=== PATIENT | female | born 1975 | race Caucasian/White ===

== ENCOUNTER 2018-09-18 09:21 | Emergency (ER) | payer OTHER, SELFPAY ==
[2018-09-18 09:21] VITALS: BP 149/79; PULSE 80; RESP 18; TEMP 37.1; O2SAT 96; BMI 33.0
--- NOTE | 2018-09-18 10:01 | ED.DCSUM_ITS ---
History of Present Illness <Arnulfo Summers - Last Filed: 09/18/18 10:14> Informant: Patient Onset: Days Context: Gradual Onset Timing: Waxes and wanes, - - Aggravated by ambulation Quality: ache Location: Plantar Surface left foot Current Severity: Mild Maximum Severity: Moderate Worsened by: Ambulation Prior similar symptoms: No Recent Illness/Hospitalization: No <Kelsi Stuart - Last Filed: 12/05/18 15:57> Chief Complaint: Lower Extremity Injury Past Medical History <Arnulfo Summers - Last Filed: 09/18/18 10:14> Prior records reviewed: Yes Lives: With Family Smoking Status: Former smoker Alcohol: None Drugs: None <Kelsi Stuart - Last Filed: 12/05/18 15:57> - Allergies and Home Meds Allergies/Adverse Reactions: Allergies No Known Allergies Allergy (Verified 09/18/18 09:23) Primary Care Physician: Mike Morgan MD [Primary Care Provider] - Hiren Pierre DPM [STAFF PHYSICIAN] - Review of Systems All systems negative except as indicated General: Denies: Chills, Fever, Sweats Eyes: Denies: Visual changes - bilaterally, Diplopia ENT: Denies: Rhinorrhea, Sore throat Cardiovascular: Denies: Chest pain, Palpitations Respiratory: Denies: Dyspnea, Cough, Dyspnea on exertion Gastrointestinal: Denies: Abdominal pain, Nausea, Vomiting, Diarrhea, Melena, Hematochezia Genitourinary: Denies: Dysuria, Hematuria, Frequency Musculoskeletal: Reports: Extremity Pain - atraumatic left foot pain. Denies: Back pain Skin: Denies: Rash, Wounds Neurological: Denies: Headache, Weakness, Numbness <Kelsi Stuart - Last Filed: 12/05/18 15:57> Physical Exam Vital Signs/Narrative: Vital Signs Temp Pulse Resp BP Pulse Ox 09/18/18 09:21 98.8 F 80 18 149/79 H 96 <Anrulfo Summers - Last Filed: 09/18/18 10:14> Vital Signs/Narrative: Vital Signs Temp Pulse Resp BP Pulse Ox 09/18/18 09:21 98.8 F 80 18 149/79 H 96 Inital Vital Signs reviewed: Yes General: Well nourished, Well developed, No Acute Distress Head: Normocephalic, Atraumatic Eyes: Perrl, EOMI ENT: Moist mucous membranes, No rhinorrhea Neck: Supple, Nontender Cardiovascular: Regular rate, Regular rhythm, No murmurs Respiratory: No distress, CTA bilaterally, Chest nontender Abdomen: Soft, Nontender, Nondistended, Normal bowel sounds Back: Nontender, Normal Inspection Extremities: No edema, Tenderness, - - Exam the left foot is unremarkable for trauma. There is no swelling deformity or warmth. MSP is are intact. She has pain with palpation of the plantar surface and flexion of the foot. She described worsening pain when she first stepped down this morning onto the floor.. Negative for: Edema, Calf Tenderness Skin: Normal color, No rash Neurological: Alert, Oriented x3, Cranial nerves II-XII grossly intact, Normal Strength, Normal Sensation Psychological: Normal affect, Normal Mood <Kelsi Stuart - Last Filed: 12/05/18 15:57> Diagnostic/Tx/Re-eval - Medical Decision Making The patient was seen with the nurse practitioner I agree with history physical e xam as above, there is been no injury is a nonspecific discomfort to the foot area no signs of trauma infection or anything acute or life-threatening, at this time screening studies are obtained see this report will determine disposition see the full note for details <Arnulfo Summers - Last Filed: 09/18/18 10:14> - Medical Decision Making Sakshi presents with left plantar foot pain for several days. She denies known injury. Pain was worse when she first step down this morning concerning her to come to the ED. She denied fever chills or leg pain or swelling. She has no history of significant arthritis or clotting disorder. Differential includes foot sprain, plantar fasciitis,occult fracture. X-ray of her left foot showed no acute bony injury process. She will be placed in a postop shoe and prescribed Naprosyn for inflammation. Her exam seems to be most consistent with plantar fasciitis. She will follow the primary care provider and/or podiatry. She was discharged home in stable condition and is agreeable to discharge plan. Final impression: Left foot pain Plantar fasciitis <Kelsi Stuart - Last Filed: 12/05/18 15:57> ED Disposition <Arnulfo Summers - Last Filed: 09/18/18 10:14> <PhillipKelsi storey - Last Filed: 12/05/18 15:57> - Plan for ED Patient: Disposition: Home or Assisted Living Diagnosis: Plantar fascia syndrome Instructions: Sprain Foot Prescriptions: Naproxen [Naprosyn] 500 mg PO BID PRN #20 tab Prescription Printed Referrals: Mike Morgan MD [Primary Care Provider] - Hiren Pierre DPM [STAFF PHYSICIAN] -
--- NOTE | 2018-09-18 10:20 | RAD_ITS ---
STUDY: X-RAY - LEFT FOOT CLINICAL: Female, 43 years old. TECHNIQUE: 3 view(s) of the foot. COMPARISON: None. FINDINGS: Normal talus, calcaneus, and tarsal bones. Normal visualized subtalar, talonavicular, calcaneocuboid, tarsal and tarsometatarsal articulations. Normal metatarsi. Normal metatarsophalangeal joint of the great toe. Normal tibial and fibular sesamoid bones. Normal interphalangeal joint of the great toe. Normal phalanges of the great toe. Normal second through fifth metatarsophalangeal joints. Normal interphalangeal joints and phalanges of the lesser toes. The soft tissue structures are unremarkable. RAD/Foot min 3 Views IMPRESSION: Normal x-ray examination of the foot. Electronically Signed: Keanulaureen Margot, at 11:40 EDT Tel , Service support ,
[2018-09-18 14:06] VITALS: BP 135/78; PULSE 72; RESP 18; O2SAT 97
== END 2018-09-18 14:07 | disposition home or self-care (01) ==
LOC: ED 10:20
PROVIDERS: Emergency Provider Nurse Practitioner
DX: M72.2 Plantar fascial fibromatosis (principal)
CPT/HCPCS: 73630; 99283

== ENCOUNTER 2024-02-03 07:24 | Day surgery (SDC) | payer OTHER, SELFPAY ==
[2024-02-03] VITALS (10 sets, daily range): BP systolic 113–129; BP diastolic 63–81; PULSE 75–89; RESP 14–16; TEMP 35.5–36.6; O2SAT 93–100; BMI 29.9
[2024-02-03 07:49] LABS: Internal QC Validated? YES +Cl - CLEAR BKGD; Pregnancy, Urine Negative Negative
[2024-02-03] MEDS: Lactated Ringers 1,000 ML 15 ML IV ×2 (08:02→10:27)
[2024-02-03] MEDS: Cefazolin 2 GM in Syringe IV (09:20)
[2024-02-03] MEDS: Lubricating Jelly 60 GM Tube 30 GM (09:30)
[2024-02-03] MEDS: Povidone Iodine 30 ML Opthalmic Sol 1 DRP (09:50)
[2024-02-03] MEDS: Sodium/Calcium/Mag/Potassium 15 ML Bottle (10:14)
[2024-02-03] MEDS: BACITRACIN/POLYMYXIN B 15 GM Tube 1 APPLIC (13:02)
[2024-02-03] MEDS: Bupiv/Epi 0.25% 30 ML Vial (13:16)
[2024-02-03] MEDS: Lidocaine 1% /Epi 1:100 (50ml) 50 ML VIAL (13:16)
== END 2024-02-03 16:28 | disposition home or self-care (01) ==
LOC: SDC 07:26 → AC 07:27
PROVIDERS: Anesthesiology; Referring Provider Surgery Plastic and Reconstructive Surgery; Visit Provider Surgery Plastic and Reconstructive Surgery
PROC: (CPT 67900; principal; 2024-02-03 08:45)
DX: H57.813 Brow ptosis, bilateral (principal); E78.00 Pure hypercholesterolemia, unspecified; Z87.891 Personal history of nicotine dependence; Z90.49 Acquired absence of other specified parts of digestive tract; H02.836 Dermatochalasis of left eye, unspecified eyelid
CPT/HCPCS: 67900; 00103; 81025; J7120; J2405

== ENCOUNTER → 2024-04-22 | Outpatient (CLI) | payer OTHER, SELFPAY ==
--- NOTE | 2024-04-22 09:40 | LES_PTH ---
PATIENT: TOSHAJUNE TORREY LOC: [facility] U#:[id number] AGE/SX: 48/F ROOM: RE04/22/[address]: Dr. Jonah Talavera MD : 1975 BED: DIS: 04/22/2024 SPEC #: [id number] RECD: 04/22/24 11:05 STATUS: CARSON FERREIRA #: [id number] HEBER: 04/22/24 09:[address]: Jonah Talavera DEPT: SURGICAL PATHOLOGY RECD BY: Vanessa Gardiner ENTERED: 04/25/24 09:57 SP TYPE: Lesion OTHR DR: Dr. Mike Morgan MD Tissues: Skin of face, NOS Procedures: Surgery Specimen Level IV HEADER OPERATION: Excision left faith PRE-OP DIAGNOSIS: Left faith TISSUE SUBMITTED: Left faith lesion MICROSCOPIC DIAGNOSIS Left faith lesion, excision: Intradermal nevus. See nav. 04/26/2024 COMMENT The lesion is present at the peripheral margin of the specimen. MICROSCOPIC DESCRIPTION Slides are reviewed. GROSS DESCRIPTION Received in fixative is one container labeled with the patient's name and designated Left faith lesion. The specimen consists of a bhakta-white skin ellipse measuring 0.6 x 0.4 x 0.2cm. The specimen is inked, bisected and submitted entirely in one cassette. 04/25/2024 TC:1 CPT:16576
== END | disposition home or self-care (01) ==
LOC: LABSPEC 11:22
PROVIDERS: Referring Provider Surgery Plastic and Reconstructive Surgery; Visit Provider Surgery Plastic and Reconstructive Surgery
DX: L98.9 Disorder of the skin and subcutaneous tissue, unspecified (principal)
CPT/HCPCS: 88305

== ENCOUNTER 2024-06-21 07:20 | Day surgery (SDC) | payer OTHER, SELFPAY ==
[2024-06-21] VITALS (8 sets, daily range): BP systolic 98–111; BP diastolic 63–83; PULSE 59–80; RESP 16; TEMP 36.1–36.4; O2SAT 96–99; BMI 28.7
[2024-06-21] MEDS: 0.9% Normal Saline (1000mL) 1,000 ML 15 ML IV (07:54)
--- NOTE | 2024-06-21 08:24 | HP.PCM.SX_ITS ---
HPI - General HPI Narrative TIAGO GIVENS, is a 49 F who presents for upper eyelid blepharoplasty (skin only) . Current Encounter (DATE OF SURGERY H&P UPDATE): I saw and examined the patient this morning in pre-operative holding. We discussed risks and benefits of today's surgery and they would like to proceed. NO CHANGE in health history since last seen and evaluated. Ready to proceed with surgery. [facility] Medical History Hx of spinal stenosis Sleep apnea Wears glasses Hypoglycemia Arthritis Fatty liver Back pain Migraine headache Injury of head and neck Gastric reflux Former smoker CPAP (continuous positive airway pressure) dependence Sleep apnea History of echocardiogram Hx of colonic polyps History of hypoglycemia History of high cholesterol History of frequent headaches History of back problems History of arthritis Home Medications ?Medication ?Instructions ?Recorded ?Last Taken ?Type naproxen 500 mg tablet 500 mg PO BID PRN #20 tabs 0 09/18/18 Unknown Rx Held on 02/03/24. Instructions: Resume on 02/10/24. Hold for 1 week cyclobenzaprine 5 mg tablet 5 mg PO QHS PRN muscle spa sm 12/10/23 Unknown History furosemide 20 mg tablet 20 mg PO QDAY PRN DIURETIC 0 12/10/23 Unknown History metronidazole 1 % topical cream 1 applic topical QDAY 12/10/23 Unknown History spironolactone 5 %-niacinamide 4 % 1 ea topical PRN Unknown History topical gel famotidine 20 mg tablet (Acid 20 mg PO DAILY 01/27/24 06/21/24 06:00 History Physician Compensation Analyst (famotidine)) Allergy/AdvReac Type Severity Reaction Status Date / Time No Known Allergies Allergy Verified 06/21/24 07:42 Family History Sister Anemia Aunt Cervical cancer Uncle Colon cancer Surgical History History of surgery History of esophagogastroduodenoscopy (EGD) History of eyelid surgery History of dilatation and curettage History of cholecystectomy Social History Smoking Status: Former smoker how long ago did patient quit smokin years ago alcohol intake: never substance use type: does not use additional social history: denies vaping, denies marijuana use, denies edibles, uses ibuprofen as needed, denies aspirin use. Vital Signs Vital Signs Vital Signs: 06/21/24 07:45 06/21/24 07:45 Temperature 97.5 F L Temperature Source Temporal Pulse Rate 59 L Respiratory Rate 16 Respiratory Pattern Normal Blood Pressure 111/83 H Blood Pressure Mean 92 Blood Pressure Source Monitor Blood Pressure Position Semi-Fowlers Blood Pressure Location Left Arm Pulse Ox 99 Oxygen Delivery Method Room Air Weight Weight: 152 lb 1.903 oz Body Mass Index (BMI) 28.7 Physical Exam Narrative Head/face Scalp incision healed. Hair growing back. Periorbital swelling much improved, residual upper eyelid swelling gone. Brows symmetric and are just above the orbital rim. Slight tarsal show on the left and right, but more tarsal show on the left Sensation: Intact to light touch on the forehead diffusely, but absent about the suture line on the scalp. Motor: She is able to raise her eyebrows bilaterally (frontal branch of the f acial nerve intact) Assessment & Plan Assessment/Plan (1) Brow ptosis, bilateral: PLAN: Resolved (2) Dermatochalasis of both eyelids: PLAN: Plan INTERVAL H&P PLAN, DATE OF SURGERY: We will proceed with surgery today. I talked to the patient extensively about the risks of surgery, including lagophthalmos, blinking problems, bleeding, infection, damage to surrounding structures, poor scaring, asymmetries, surgical site dehiscence and wound formation, need for wound care, need for repeat operations, failure to obtain the desired result, DVT/PE, and the risks of anesthesia including , including stroke (from low blood pressure/ischemia or clot), albeit we will do sedation/local so this will mitigate these risks (discussed with patient and her ). The benefits and alternatives of this surgery were also discussed. All of their questions were answered, and they agreed to proceed with surgery.
--- NOTE | 2024-06-21 08:24 | PCM.PRE.AN2 ---
ASA Classification* ASA Classification ASA Classification: 2 Assessment & Plan Anesthesia* Anesthesia Assessment Anesthesia Assessment: Discussed sedation and/or anesthesia options, risks, benefits, and alternatives with patient/parents/legal guardian/POA. Questions invited. The patient/parents/legal guardian/POA seems to understand and agrees to proceed with anesthesia plan. Reviewed the physical assessment, medical history, allergy history and patient home medications list prior to surgery/procedure/anesthetic and documented any changes. Performed airway and anesthesia risk assessments. 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 When Was Last Pacemaker Check QUESTION #4 FULL TEXT: You/Your Family Experience fever (hyperthermia) with Anesthesia Last Oral Intake Last Oral intake: Last Oral Intake NPO since 06:00 06/21/24 07:45 Meds taken in AM with sips of Yes 06/21/24 07:45 water? Meds patient instructed to take am of surgery Any additional information?: Yes Meds taken in AM with sips of water?: Yes PONV PONV - fur blowing machine operator: PONV - fur blowing machine operator Female Yes 06/13/24 15:47 HX of Motion Sickness No 06/13/24 15:47 HX of N/V After Surgery Yes 06/13/24 15:47 Non-Smoker Yes 06/13/24 15:47 Duration of Surgery greater No 06/13/24 15:47 than 60 minutes Number of Risk Factors 3 06/13/24 15:47 PONV Score Moderate Risk 06/13/24 15:47 Height & Weight Height & Weight: Anesthesia: Height & Weight Height 5 ft 1 in 06/21/24 07:45 Weight: 69 kg 06/21/24 07:45 Body Mass Index (BMI) 28.7 06/21/24 07:45 Respiratory Assessment Respiratory Assessment - fur blowing machine operator: Respiratory Tract Infection Hx - fur blowing machine operator Hx Respiratory Tract Infection No 06/13/24 15:47 STOP Sleep Apnea STOP Sleep Apnea - fur blowing machine operator: STOP Sleep Apnea - fur blowing machine operator Hx Hypertension No 06/13/24 15:47 Hx Sleep Apnea Yes 06/13/24 15:47 CPAP Yes 06/13/24 15:47 BIPAP No 06/13/24 15:47 Do you snore loudly (louder than talking or can be heard Do you often feel tired/ fatigued/ sleepy during daytime? Has anyone observed you stop breathing during sleep? STOP Results Positive 06/13/24 15:47 QUESTION #5 FULL TEXT : Do you snore loudly (louder than talking or can be heard through closed doors)? Tobacco Use History Tobacco Use History - fur blowing machine operator: Tobacco Use History - fur blowing machine operator Tobacco Use Smoking Status Former smoker 06/13/24 15:47 Hx Tobacco Use No 06/13/24 15:47 Years Smoking Packs Smoked per Day Smoking Cessation Date was No - quit smoking greater 06/13/24 15:47 within the last 15 years than 15 years ago Hx Smoking Cessation Date Hx Smoking Cessation No 06/13/24 15:47 Counseling Hematologic Medial History Hematologic Hx - fur blowing machine operator: Hematologic Medical Hx - chain mender Hx of Blood Transfusion No 06/13/24 15:47 Hx of Transfusion in last 3 No 06/13/24 15:47 Months Date of Last Transfusion (if within last 3 months) Ever experience any problems No 06/13/24 15:47 with transfusion(s)? Specify any problems Hx of Preganancy in last 3 No 06/13/24 15:47 Months Nurse Filling Out Transfusion JZOLLINGE 06/13/24 15:47 & Questions: Date: 06/13/24 06/13/24 15:47 Time: 15:49 06/13/24 15:47 Patient unable to answer at this time (ie. confused, unrespo /Reproduction History /Reproductive History - fur blowing machine operator: /Reproductive Hx- fur blowing machine operator Hx Now No 06/13/24 15:47 Gestational Age (in weeks): EDC: Hx Hx Para Hx Section SAB No 06/13/24 15:47 Active Medications Active Medications: Current Medications Generic Name Dose Route Start Last Admin Trade Name Freq PRN Reason Stop Dose Admin Cefazolin Sodium 2 gm/ N/A 20 mls @ 400 mls/hr 06/21/24 08:45 IV 06/21/24 08:47 PREOP ONE Sodium Chloride 1,000 mls @ 15 mls/hr 06/21/24 07:25 06/21/24 07:54 IV 06/26/24 20:44 15 mls/hr .Q48H NATA Administration PFSH Medical History Hx of spinal stenosis Sleep apnea Wears glasses Hypoglycemia Arthritis Fatty liver Back pain Migraine headache Injury of head and neck Gastric reflux Former smoker CPAP (continuous positive airway pressure) dependence Sleep apnea History of echocardiogram Hx of colonic polyps History of hypoglycemia History of high cholesterol History of frequent headaches History of back problems History of arthritis Home Medications ?Medication ?Instructions ?Recorded ?Last Taken ?Type naproxen 500 mg tablet 500 mg PO BID PRN #20 tabs 09/18/18 Unknown Rx Held on 02/03/24. Instructions: Resume on 02/10/24. Hold for 1 week cyclobenzaprine 5 mg tablet 5 mg PO QHS PRN muscle spasm 12/10/23 Unknown History furosemide 20 mg tablet 20 mg PO QDAY PRN DIURETIC 12/10/23 Unknown History metronidazole 1 % topical cream 1 applic topical QDAY 12/10/23 Unknown History spironolactone 5 %-niacinamide 4 % 1 ea topical PRN 12/10/23 Unknown History topical gel famotidine 20 mg tablet (Acid 20 mg PO DAILY 01/27/24 06/21/24 06:00 History Iridologist (famotidine)) Allergy/AdvReac Type Severity Reaction Status Date / Time No Known Allergies Allergy Verified 06/21/24 07:42 Family History Sister Anemia Aunt Cervical cancer Uncle Colon cancer Surgical History History of surgery History of esophagogastroduodenoscopy (EGD) History of eyelid surgery History of dilatation and curettage History of cholecystectomy Social History Smoking Status: Former smoker how long ago did patient quit smokin years ago alcohol intake: never substance use type: does not use additional social history: denies vaping, denies marijuana use, denies edibles, uses ibuprofen as needed, denies aspirin use. Review of Systems (Anesthesia) ROS Narrative System reviewed and no additional complaints, except as documented.
--- NOTE | 2024-06-21 08:39 | OP.PCM_ITS ---
Operative Report (Standard) Operative Information Date of Procedure: 06/21/24 Pre-Operative Diagnosis: Upper eyelid dermatochalasis Post-Operative Diagnosis: Same Surgery/Procedure Performed: Upper eyelid blepharoplasty, bilateral and skin only (CPT: 60800) strategic partnership representative: Yes Federal Air Marshal: Sulema Murguia Tasks completed by first coat operator: Retracting Type of Anesthesia: MAC/Supplemental/Local (2 cc of the local solution. ) RN Documented Start/Stop Times: Operation Date: 06/21/24 08:45 Case Time Into Pre-Op 06/21/24 07:24 Out of Pre-Op 06/21/24 08:31 Procedure Start Time: 09:04 Procedure Stop Time: 09:41 Select all DRAINS/GRAFTS/IMPLANTS that apply: None Estimated Blood Loss: minimal Specimen collected: No Description of surgery: Indications: Sakshi Loera is a delightful 49 YO FM with past medical history of upper eyelid excess skin which is interfering with vision. Presents today for bilateral upper eyelid blepharoplasty. We spoke about existing asymmetries with regards to her upper eyelids and eyelid creases, and I talked to her about the risks, benefits, and alternatives to the procedure, including asymmetries post operatively. They elected to proceed with surgery. Procedure details: Patient was correctly identified in preoperative holding and marked. They were taken back to the operating room where was administered sedation and prepped and draped in sterile fashion with ophthalmic Betadine solution. A timeout was performed. Appropriate upper lid blepharoplasty skin markings were then confirmed with care taken to have 9 mm between the lid crease incision and the eyelid margin centrally, with care taken not to extend medially past the puncta. The incisions did not extend lateral to the orbital rim, and they were >1 cm from the brow superiorly. The allan were tested with skin pinch test and it looked like there was the safe/appropriate amount of skin being excised. The skin was injected with a 50/50 mixture of 1% lidocaine with 1-200,000 epinephrine and 0.25% Marcaine with 1:200,000 epinephrine. It was given time to take effect. A 15 blade scalpel was used to excise the excess upper eyelid skin within the markings, leaving behind all of the orbicularis muscle. Hemostasis was obtained with Bovie electrocautery. Incisions were closed with a running subcuticular 6- 0 Prolene suture. The tails were taped with Steri-Strips. The same procedure was preformed on both upper eyelids. The patient tolerated the procedure well. The patient was awakened and taken to the PACU in stable condition. Surgical Findings: No lagophthalmos at the completion of the case, no trouble blinking. 20 mm of skin from margin to brow bilaterally at the completion of the case. Complications Complications: No
[2024-06-21] MEDS: Cefazolin 2 GM in Syringe IV (08:40)
[2024-06-21] MEDS: Povidone Iodine 30 ML Opthalmic Sol 1 DRP (09:14)
[2024-06-21] MEDS: Bupiv/Epi 0.25% 30 ML Vial (09:40)
[2024-06-21] MEDS: Lidocaine 1% /Epi 1:100 (20ml) 20 ML Vial (09:40)
[2024-06-21] MEDS: Erythromycin Base 1 OPTH.TUBE 1 APPLIC (09:41)
--- NOTE | 2024-06-21 09:53 | PCM.POST.ANE ---
Anesthesia: Postop Eval I Current Vital Signs Temperature: 96.9 F Pulse Rate: 80 Blood Pressure: 101/63 Respiratory Rate: 16 Pulse Ox: 96 Oxygen Delivery Method: Room Air Assessment Airway patent: Yes Spontaneous unlabored respirations: Yes Mental status: Awake nausea: No Vomiting: No Anesthesia Complication: No Fluid Hydration Crystalloid volume administer (ml): 800 Total IV fluid infused: 800 Progress Note Anesthesia document: Postop Eval 1 completed: Yes
--- NOTE | 2024-06-21 19:06 | POSTOPAN2_ITS ---
Anesthesia Postop Eval I Sum Postop Eval Completion status Anesthesia document: Postop Eval 1 completed: Yes Anesthesia Postop Eval I Summary Anesthesia Postop Eval I Summary: Anesthesia Postop Eval I: Assessment Summary Airway patent Yes 06/21/24 09:54 ASSOCIATE PROFESSOR OF [email or web address] Spontaneous unlabored Yes 06/21/24 09:54 ASSOCIATE PROFESSOR OF [email or web address] respirations Mental status Awake 06/21/24 09:54 ASSOCIATE PROFESSOR OF [email or web address] nausea No 06/21/24 09:54 ASSOCIATE PROFESSOR OF [email or web address] Vomiting No 06/21/24 09:54 ASSOCIATE PROFESSOR OF [email or web address] Anesthesia Postop Eval I: Fluid Summary Crystalloid volume administer 800 06/21/24 09:54 ASSOCIATE PROFESSOR OF [email or web address] (ml) Colloids volume administered ( ml) Blood Product volume administered (ml) Total IV fluid infused 800 06/21/24 09:54 ASSOCIATE PROFESSOR OF [email or web address] Anesthesia Postop Eval I: Summary Notes Anesthesia Complication No 06/21/24 09:54 ASSOCIATE PROFESSOR OF [email or web address] Anesthesia Complication Comment: Post-operative progress note Anesthesia: Postop Eval II Evaluation Mental status: Awake and Calm Pain Level: 1 nausea: No Vomiting: No Complications Anesthesia Complication: No
--- NOTE | 2024-06-21 19:06 | PCM.POSTANE2 ---
Anesthesia Postop Eval I Sum Postop Eval Completion status Anesthesia document: Postop Eval 1 completed: Yes Anesthesia Postop Eval I Summary Anesthesia Postop Eval I Summary: Anesthesia Postop Eval I: Assessment Summary Airway patent Yes 06/21/24 09:54 [email or web address] Spontaneous unlabored Yes 06/21/24 09:54 [email or web address] respirations Mental status Awake 06/21/24 09:54 [email or web address] nausea No 06/21/24 09:54 [email or web address] [email or web address] Vomiting No 06/21/24 09:54 [email or web address] Anesthesia Postop Eval I: Fluid Summary Crystalloid volume administer 800 06/21/24 09:54 [email or web address] (ml) Colloids volume administered ( ml) Blood Product volume administered (ml) Total IV fluid infused 800 06/21/24 09:54 [email or web address] Anesthesia Postop Eval I: Summary Notes Anesthesia Complication No 06/21/24 09:54 [email or web address] Anesthesia Complication Comment: Post-operative progress note Anesthesia: Postop Eval II Evaluation Mental status: Awake and Calm Pain Level: 1 nausea: No Vomiting: No Complications Anesthesia Complication: No
== END 2024-06-21 10:46 | disposition home or self-care (01) ==
LOC: SDC 07:21 → AC 07:23
PROVIDERS: Referring Provider Surgery Plastic and Reconstructive Surgery; Visit Provider Surgery Plastic and Reconstructive Surgery
PROC: (CPT 15822; principal; 2024-06-21 08:35)
DX: H02.831 Dermatochalasis of right upper eyelid (principal); H02.834 Dermatochalasis of left upper eyelid; Z87.891 Personal history of nicotine dependence
CPT/HCPCS: 15822; 00103; J2405